=== PATIENT | female | born 1990 | race Caucasian/White ===

== ENCOUNTER → 2017-09-11 | Outpatient (CLI) | payer OTHER ==
[2016-02-13 09:32] VITALS: BP 146/82
[2017-09-11 15:26] LABS: BILIRUBIN,URINE NEGATIVE (NEGATIVE); BLOOD/HEMOGLOBIN,URINE 1+ (NEGATIVE); GLUCOSE, URINE NEGATIVE (NEGATIVE); KETONES,URINE NEGATIVE (NEGATIVE); LEUKOCYTE ESTERASE ,URINE 1+ (NEGATIVE); NITRITES,URINE NEGATIVE (NEGATIVE); PROTEIN,URINE 2+ (NEGATIVE); UROBILINOGEN,URINE 1+ (NORMAL)
[2017-09-11 15:26] LABS: BASOPHILS % (AUTO) 0.2 % (0.2-1.0); BLOOD UREA NITROGEN 7 mg/dL (7-18); CALCIUM 8.7 mg/dL (8.5-10.1); CARBON DIOXIDE 25.5 mmol/L (21-32); CHLORIDE 103 mmol/L (98-107); CREATININE 0.54 mg/dL (0.55-1.02); EOSINOPHILS # (AUTO) 0.1 x10^3/uL (0.0-0.2); EOSINOPHILS % (AUTO) 1.1 % (0.9-2.9); HEMATOCRIT 38.2 % (36.0-47.0); LYMPHOCYTES # (AUTO) 1.9 X10^3/uL (1.3-2.9); LYMPHOCYTES % (AUTO) 20.8 % (21.0-51.0); MEAN CORPUSCULAR HEMOGLOBIN 28.1 pg (27.0-34.0); MEAN CORPUSCULAR HGB CONC 34.1 g/dL (33.0-35.0); MEAN CORPUSCULAR VOLUME 82.2 fL (80.0-100.0); MONOCYTES # (AUTO) 0.3 x10^3/uL (0.3-0.8); MONOCYTES % (AUTO) 3.8 % (0.0-13.0); NEUTROPHILS # (AUTO) 6.6 x10^3/uL (2.2-4.8); NEUTROPHILS % (AUTO) 74.1 % (42.0-75.0); PLATELET COUNT 159 X10^3/uL (150.0-450.0); RED BLOOD COUNT 4.65 X10^6/uL (3.5-5.4); RED CELL DISTRIBUTION WIDTH 15.1 % (11.6-16.5); SODIUM 138 mmol/L (136-145); WHITE BLOOD COUNT 8.9 X10^3/uL (3.6-10.0); eGFR BLACK RACES > 60 (>60); eGFR NON BLACK RACES > 60 (>60)
[2017-09-11 16:07] LABS: AMORPHOUS SEDIMENT,UR TRACE /HPF (NEGATIVE); APPEARANCE,URINE CLEAR (CLEAR); BACTERIA,URINE TRACE /HPF (NEGATIVE); COLOR,URINE YELLOW (YELLOW); MUCUS,URINE MODERATE /HPF (NEGATIVE); RBC,URINE RARE /HPF (NEGATIVE); SQUAMOUS EPITHELIAL CELL,UR MANY /HPF (NEGATIVE)
== END ==
LOC: LAB 14:26
PROVIDERS: ATTEND Specialist
DX: Z01.818 Encounter for other preprocedural examination (principal); Z34.83 Encounter for supervision of other normal pregnancy, third trimester
CPT/HCPCS: 36415; 80048; 80307; 81001; 85025; 86592; 86850; 86900; 86901; G0434

== ENCOUNTER 2017-09-14 06:24 | Inpatient (IN) | payer OTHER ==
[2017-09-14] MEDS ORDERED: LR 1000 ML IV 1,000 ML IV ONE ×2 (06:40→08:10)
[2017-09-14] MEDS ORDERED: PITOCIN ONE (06:41)
[2017-09-14] MEDS ORDERED: D5LR 1L W PITOCIN 10 UNITS/L 10 UNITS/1,000 ML BAG IV ONE (06:41)
[2017-09-14] MEDS ORDERED: D5 1/2 NS 1000 ML 1,000 ML IV ONE (06:42)
[2017-09-14] MEDS ORDERED: D5 1/2 NS 1L W PITOCIN 20 UNITS/L 20 UNITS/1,000 ML BAG IV ONE (06:42)
[2017-09-14] MEDS ORDERED: NAROPIN EPIDURAL 0.2% 97 ML with FENTANYL INJ 250 mcg 150 MCG EPI ONE ×2 (07:00)
--- NOTE | 2017-09-14 07:01 | DR.OB ---
OB Quick Note - Assessment/Plan Assessment/Plan: L&D 09/14/17 at 6:55am S-No complaint. O-Afebrile,VSS MTL=635 with good LTV, +accel, no decel. CTX=occasional,mild CVX=3cm/50%/-1/VTX AROM with clear fluid. IUPC and FSE placed. A-IUP at 39 3/7 weeks for induction P-Begin pitocin induction Anticipate
[2017-09-14] MEDS ORDERED: FENTANYL INJ 100 mcg ONE (07:50)
[2017-09-14] MEDS ORDERED: NAROPIN EPIDURAL 0.2% + FENTANYL 90MCG 60 ML EPI ONE (07:50)
[2017-09-14] MEDS ORDERED: MORPHINE SULFATE INJ 2 MG INJ IVP PRN (08:35)
[2017-09-14] MEDS ORDERED: NUBAIN INJ 200 MG VIAL MULTIDOSE IVP PRN (08:35)
[2017-09-14] MEDS ORDERED: PHENERGAN INJ 25 MG IV PRN ×3 (08:35→12:11)
[2017-09-14] MEDS ORDERED: D5 1/2 NS 1000 ML 1,000 ML IV SCH (08:35)
[2017-09-14] MEDS ORDERED: REGLAN INJ 10 MG VIAL IVP PRN ×2 (08:35→12:11)
[2017-09-14] MEDS ORDERED: PITOCIN IVP ONE (08:35)
[2017-09-14] MEDS ORDERED: D5LR 1L W PITOCIN 10 UNITS/L 10 UNITS/1,000 ML BAG IV PRN (08:35)
[2017-09-14] MEDS ORDERED: MOTRIN TAB 800 MG PO PRN ×2 (11:24→12:11)
[2017-09-14] MEDS ORDERED: D5 1/2 NS 1000 ML 1,000 ML with PITOCIN 20 UNITS IV SCH ×2 (12:00)
[2017-09-14] MEDS ORDERED: AMBIEN PO PRN (12:11)
[2017-09-14] MEDS ORDERED: ADACEL TDaP IM ONE (12:11)
[2017-09-14] MEDS ORDERED: MILK OF MAGNESIA PO PRN (12:11)
[2017-09-14] MEDS ORDERED: DERMOPLAST SPRAY TOP PRN (12:11)
[2017-09-14] MEDS: D5 1/2 NS 1000 ML 1,000 ML with PITOCIN 20 UNITS IV SCH ×4 (14:24→22:28)
--- NOTE | 2017-09-14 16:00 | DR.OB ---
OB Quick Note - Assessment/Plan Assessment/Plan: Delivery Note FRUIT DUMPER 09/14/17 at 11:15am Patient complete and pushing. Head delivered over intact perineum. Nuchal cord x 2 reduced. Nose and mouth bulb suctioned. Body delivered over intact perineum. Cord clamped x 2 and cut. Infant handed to attendant. Cord sent for gases. Placenta delivered spontaneously / intact / 3 vessel cord. No CVX / vaginal / perineal tears noted. Viable male , wt=8'3" and 9/9, stable to NBN. Mother stable to RR. [id number].
[2017-09-14] MEDS: ZANTAC PO SCH (21:00)
[2017-09-15 05:17] LABS: HEMATOCRIT 36.5 % (36.0-47.0); HEMOGLOBIN 12.4 g/dL (12.0-16.0)
[2017-09-15] MEDS: ZANTAC PO SCH (08:12)
[2017-09-15] MEDS ORDERED: PRENATAL PLUS PO SCH (09:00)
[2017-09-15 12:21] VITALS: BP 169/93
[2017-09-15] MEDS: D5 1/2 NS 1000 ML 1,000 ML with PITOCIN 20 UNITS IV SCH ×2 (14:49)
== END 2017-09-15 15:30 | disposition home or self-care (01) | DRG 775 ==
LOC: LD 06:24 → MED/SURG 12:11
PROVIDERS: ADMIT Specialist; ATTEND Specialist
PROC: 10E0XZZ Delivery of Products of Conception, External Approach (ICD-10-PCS; principal; 2017-09-14)
PROC: 10907ZC Drainage of Amniotic Fluid, Therapeutic from Products of Conception, Via Natural or Artificial Opening (ICD-10-PCS; 2017-09-14)
PROC: 3E033VJ Introduction of Other Hormone into Peripheral Vein, Percutaneous Approach (ICD-10-PCS; 2017-09-14)
PROC: 00HU33Z Insertion of Infusion Device into Spinal Canal, Percutaneous Approach (ICD-10-PCS; 2017-09-14)
PROC: 3E0234Z Introduction of Serum, Toxoid and Vaccine into Muscle, Percutaneous Approach (ICD-10-PCS; 2017-09-14)
DX: O80 Encounter for full-term uncomplicated delivery (principal); Z37.0 Single live birth; Z3A.39 39 weeks gestation of pregnancy; Z23 Encounter for immunization
CPT/HCPCS: 09167; 36415; 59409; 80048; 80307; 81001; 85014; 85018; 85025; 86592; 86850; 86900; 86901; A4222; S0197; G0434; J2590; J3010; J7042; J7120

== ENCOUNTER 2017-09-21 21:36 | Emergency (ER) | payer OTHER ==
[2017-09-21 21:51] VITALS: BMI 39.1
--- NOTE | 2017-09-21 21:57 | DR.GENAD ---
HPI - PCP Primary Care Physician: susan - HPI Comment HPI Comment: HISTORY BELOW. - Complaint/Symptoms Chief Complaint Doctors Comments: GLASS BOWL FELL AND BROKE AND PATIENT FELL IN THE GLASS SUSTAINING LACERATION TO THE PALM OF HER RIGHT HAND AND MID LEFT FOREARM. DENIES LOC. TD NOT UTD. Chief Complaint:: pt fell has laceration 1 inch to lt forearm and laceration to rt palm of hand on a glass cassorole dish - Nurses notes reviewed Nurses Notes Review: Yes - Source History Provided: Patient - Mode of Arrival Mode of Arrival: Ambulatory - Timing Onset of Chief Complaint: 09/21/17 Came on: Suddenly - Duration Duration: Constant Duration: Hours - Severity Severity: Moderate PMH - PMH Past Medical History: No Past Surgical History: Yes Surgical History: Tonsillectomy - Family History History of Family Medical Conditions: Yes Family Medical History: Diabetes Mellitus, Hypertension - Social History Do you use any recreational Drugs:: No Lives With: Family Lives Where: Home - infectious screening In the last 2 months have you had wt loss of >10#?: NO Have you had fever, night sweats or hemotysis?: No Have you traveled outside the country in the last 6 months?: No Isolation: Standard ROS - Review of Systems Constitutional: No Symptoms Reported Eyes: No Symptoms Reported ENTM: No Symptoms Reported Respiratoy: No Symptoms Reported Cardiovascular: No Symptoms Reported Gastrointestinal/Abdominal: No Symptoms Reported Genitourinary: No Symptoms Reported Neurological: No Symptoms Reported Musculoskeletal: Forearm (MID POSTERIOR LEFT FOREARM LACERATION 2CM.), Hand ( LACERATION, PALM RIGHT HAND/2CM.) Integumentary: Other (LAC PALM RT HAND AND LT FOREARM.) Hematologic/Lymphatic: No Symptoms Reported Endocrine: No Symptoms Reported All Other Systems: Reviewed and Negative PE - Vital Signs Vitals: Temperature 98.2 F Pulse Rate [Left Brachial] 76 Pulse Rate 74 Respiratory Rate 16 Blood Pressure [Left Arm] 126/74 Blood Pressure [Right Arm] 169/93 Blood Pressure 147/83 O2 Sat by Pulse Oximetry 100 - General Limitations: No Limitations General Appearance: Alert - Head Head Exam: Normal Inspection - Eyes Eye exam: Normal Appearance, PERRL, EOMI. negative: Scleral Icterus, Conjunctival Injection - ENT ENT Exam: Normal Exam, Normal External Ear Exam External Ear Exam: Normal External Inspection TM/Canal Exam: Bilateral Normal Nose Exam: Normal Nose Exam Mouth Exam: Normal Inspection Throat Exam: Normal Inspection - Neck Neck Exam: Trachea Midline - Chest Chest Inspection: Symmetric Chest Wall Rise - Respiratory Respiratory Exam: Normal Lung Sounds Bilat Respiratory Exam: Bilateral Clear to Auscultation - Cardiovascular Cardiovascular Exam: Regular Rate, Normal Rhythm, Normal Heart Sounds - Abdominal Exam Abdominal Exam: Normal Bowel Sounds, Soft. negative: Tenderness - Extremities Extremities Exam: Tenderness (LACERATION LEFT FOREARM AND RIGHT PALM OF HAND.) - Back Back Exam: Paraspinal Tenderness - Neurologic Neurological Exam: Alert, Oriented X3 - Psychiatric Psychiatric Exam: Normal Affect, Normal Mood, Anxious - Skin Skin Exam: Other (LACERATIONS ABOVE.) MDM - Additional Information Additional Information Obtained From: Family - Differential Diagnosis Differential Diagnosis: LACERATION PALM RIGHT HAND, LACERATION LEFT FOREARM. Course - Treatment Treatment: SEE ORDERS. LAC CLOSE IN ED. - Education/Counseling Education/Counseling: Patient, Family, Education Educated On: Treatment, Needs for Follow Up Procedures - Laceration/Wound Repair Right Wound Length (cm): 2 Wound's Depth, Shape: Irregular Wound Explored: contaminated Betadine Prep?: Yes Anesthesia: 1% Lidocaine Wound Debrided: minimal Wound Repaired With: sutures Suture Size/Type: 4:0, Ethilion Number of Sutures: 6 Layer Closure?: Yes Deep Layer Suture Size/Type: 4:0 Sterile Dressing Applied?: Yes Splint Applied?: No Sling Applied?: No Left Forearm Wound Length (cm): 2 Wound's Depth, Shape: Linear Wound Explored: clean Anesthesia: 1% Lidocaine Volume Anesthetic (ccs): 2 Wound Debrided: minimal Wound Repaired With: sutures Suture Size/Type: 4:0, Ethilion Number of Sutures: 9 Layer Closure?: No Sterile Dressing Applied?: Yes Splint Applied?: No Sling Applied?: No - Diagnosis Discharge Problem: Laceration of right palm Qualifiers: Encounter type: initial encounter Qualified Code(s): S61.411A - Laceration without foreign body of right hand, initial encounter Laceration of left forearm Qualifiers: Encounter type: initial encounter Qualified Code(s): S51.812A - Laceration without foreign body of left forearm, initial encounter - Discharge Plan Disposition: HOME, SELF-CARE Condition: Stable Prescriptions: Cephalexin [KEFLEX CAP 500 MG *] 500 mg PO TID #21 cap Ibuprofen [MOTRIN TAB 800 MG *] 800 mg PO Q8H PRN #20 tab PRN Reason: Pain/Inflammation - Follow ups/Referrals Follow ups/Referrals: NFD,None [Primary Care Provider] - 3 days - Instructions Instructions: Laceration Care, Adult, [id number] Additional Instructions: RETURN TO ED IF WORSE. SUTURE OUT IN 10 DAYS
[2017-09-21] MEDS ORDERED: XYLOCAINE 1 % (PLAIN) ONE (22:01)
[2017-09-21] MEDS ORDERED: ADACEL TDaP IM ONE ×2 (22:02→22:16)
[2017-09-21] MEDS ORDERED: KEFLEX CAP 500 MG PO ONE ×2 (22:52→22:55)
[2017-09-21] MEDS ORDERED: MOTRIN TAB 800 MG PO ONE ×2 (22:53→22:56)
[2017-09-21 23:10] VITALS: BP 126/74
== END 2017-09-21 23:10 | disposition home or self-care (01) ==
LOC: ER 21:42
PROC: 0XQ9XZZ Repair Left Upper Arm, External Approach (ICD-10-PCS; principal; 2017-09-21)
PROC: 0XQ8XZZ Repair Right Upper Arm, External Approach (ICD-10-PCS; principal; 2017-09-21)
DX: S61.411A Laceration without foreign body of right hand, initial encounter (principal); S51.812A Laceration without foreign body of left forearm, initial encounter; W01.110A Fall on same level from slipping, tripping and stumbling with subsequent striking against sharp glass, initial encounter; Y92.9 Unspecified place or not applicable
CPT/HCPCS: 12002; 90471; 99282; J2001

== ENCOUNTER 2020-02-22 06:20 | Inpatient (IN) ==
[~2020-02-22 06:20] MED LIST: DIPRIVAN VIAL ONE; EPHEDRINE SULFATE INJ ONE; REGLAN INJ 10 MG VIAL ONE; ZOFRAN INJ 4 MG VIAL ONE
[2020-02-22] MEDS ORDERED: D5 1/2 NS 1000 ML 1,000 ML IV ONE (06:26)
[2020-02-22] MEDS ORDERED: PITOCIN ONE (06:26)
[2020-02-22] MEDS ORDERED: D5LR 1L W PITOCIN 10 UNITS/L 10 UNITS/1,000 ML BAG IV ONE (06:27)
[2020-02-22] MEDS ORDERED: BETADINE SOLN ONE (06:27)
[2020-02-22] MEDS ORDERED: D5 1/2 NS 1L W PITOCIN 20 UNITS/L 20 UNITS/1,000 ML BAG IV ONE (06:28)
[2020-02-22] MEDS: D5 1/2 NS 1000 ML 1,000 ML IV SCH ×2 (06:35→17:27)
[2020-02-22] MEDS ORDERED: MORPHINE SULFATE INJ 2 MG INJ IVP PRN (06:39)
[2020-02-22] MEDS ORDERED: PITOCIN IVP ONE (06:39)
[2020-02-22] MEDS ORDERED: NUBAIN INJ 200 MG VIAL MULTIDOSE IVP PRN (06:39)
[2020-02-22] MEDS ORDERED: REGLAN INJ 10 MG VIAL IVP PRN ×2 (06:39→18:11)
[2020-02-22] MEDS ORDERED: D5LR 1L W PITOCIN 10 UNITS/L 10 UNITS/1,000 ML BAG IV PRN (06:39)
[2020-02-22] MEDS ORDERED: PHENERGAN INJ 25 MG IM PRN ×2 (06:39→18:11)
[2020-02-22] MEDS ORDERED: AMPICILLIN VIAL 2 GRAM 2 G in NS 100 ML IV + SPIKE MINIBAG* 100 ML IV SCH (06:39)
[2020-02-22] MEDS ORDERED: AMPICILLIN VIAL 2 GRAM ONE (06:40)
[2020-02-22] MEDS ORDERED: NS 100 ML IV 100 ML IV ONE ×3 (06:40→14:42)
--- NOTE | 2020-02-22 07:01 | DR.OB ---
OB Quick Note - Assessment/Plan Assessment/Plan: L&D 02/22/20 at 6:55am S-No complaint. O-Afebrile,VSS QYL=707 with good LTV, +accel, no decel. CTX=none CVX=2-3cm/50%/-1/VTX AROM with clear fluid. IUPC and FSE placed. A-IUP at 39 3/7 weeks for induction Multiparity Desiring Permanent Sterilization +GBS P-Begin pitocin induction IV ABX in labor for +GBS Anticipate
[2020-02-22] MEDS ORDERED: AMPICILLIN VIAL 1 GRAM ONE ×2 (11:08→14:42)
[2020-02-22] MEDS: AMPICILLIN VIAL 1 GRAM 1 G in NS 50 ML IV + SPIKE MINIBAG* 50 ML IV SCH ×2 (11:10→14:48)
--- NOTE | 2020-02-22 12:00 | DR.OB ---
OB Quick Note - Assessment/Plan Assessment/Plan: L&D 02/22/20 at 11:55am Pitocin=16mu/min. Ampicillin S-No complaint. O-Afebrile,VSS WDQ=516 with good LTV, +accel, no decel. CTX=q 1 1/2 to 3 min., about 45-55mmHg CVX=4cm/50%/-1 A-IUP at 39 3/7 weeks for induction Multiparity desiring permanent sterilization +GBS P-Cont. pitocin induction/ABX Anticipate
[2020-02-22] MEDS ORDERED: NS IRRIGATION 1000 ML ONE (13:08)
[2020-02-22] MEDS ORDERED: XYLOCAINE-MPF 1% ONE (15:34)
[2020-02-22] MEDS ORDERED: DILAUDID INJ ONE (15:35)
[2020-02-22] MEDS ORDERED: ANCEF 1 GRAM IV PREMIX* 2 G/100 ML BAG IV ONE (15:48)
[2020-02-22] MEDS ORDERED: LR 1000 ML IV 1,000 ML IV ONE (16:06)
--- NOTE | 2020-02-22 16:06 | DR.OB ---
OB Quick Note - Assessment/Plan Assessment/Plan: L&D 02/22/20 at 4:04pm Pitocin=18mu/min. Ampicillin S-No complaint. O-Afebrile,VSS VRX=187 with good LTV, +accel, repetitive late decels and deep variables CTX=q 1 1/2 to 3 min., about 45-55mmHg CVX=5cm/75%/-1 A-IUP at 39 3/7 weeks with distress distant from delivery P-To C/S
[2020-02-22] MEDS: VSL#3 PO SCH (17:26)
[2020-02-22] MEDS ORDERED: BENADRYL INJ 50 MG VIAL IVP PRN ×2 (18:11→18:36)
[2020-02-22] MEDS ORDERED: ZOFRAN INJ 4 MG VIAL IVP PRN ×2 (18:11→18:36)
[2020-02-22] MEDS ORDERED: ADACEL or BOOSTRIX TDaP VACCINE IM ONE (18:36)
[2020-02-22] MEDS ORDERED: MYLICON TAB 80 MG CHEW PO PRN (18:36)
[2020-02-22] MEDS ORDERED: NARCAN INJ IVP PRN (18:36)
[2020-02-22] MEDS ORDERED: PERCOCET TAB 5/325 MG PO PRN (18:36)
[2020-02-22] MEDS ORDERED: D5 1/2 NS 1000 ML 1,000 ML with PITOCIN 20 UNITS IV SCH ×2 (19:00)
[2020-02-22] MEDS: TORADOL 30 MG VIAL IVP PRN (20:07)
[2020-02-23] MEDS: TORADOL 30 MG VIAL IVP PRN (04:30)
[2020-02-23 06:19] LABS: HEMATOCRIT 36.4 % (36.0-47.0); HEMOGLOBIN 12.5 g/dL (12.0-16.0)
[2020-02-23] MEDS ORDERED: PERCOCET TAB 5/325 MG PO PRN (08:03)
[2020-02-23] MEDS: VSL#3 PO SCH (08:21)
[2020-02-23] MEDS: PRENATAL PLUS PO SCH (08:21)
[2020-02-23] MEDS: COLACE CAP 100 MG PO SCH ×2 (09:24→21:30)
[2020-02-23] MEDS: MOTRIN TAB 800 MG PO PRN ×2 (09:24→19:09)
[2020-02-23] MEDS: BACTROBAN TOPICAL OINT TOP SCH ×2 (14:39→22:49)
[2020-02-24] MEDS: BACTROBAN TOPICAL OINT TOP SCH (05:14)
[2020-02-24] MEDS: VSL#3 PO SCH (08:21)
[2020-02-24] MEDS: MOTRIN TAB 800 MG PO PRN (08:21)
[2020-02-24] MEDS: PRENATAL PLUS PO SCH (08:21)
[2020-02-24] MEDS: COLACE CAP 100 MG PO SCH (08:21)
[2020-02-24 11:20] VITALS: BP 143/85
== END 2020-02-24 10:55 | disposition home or self-care (01) | DRG 785 ==
LOC: LD 06:20 → MED/SURG 18:23
PROVIDERS: ADMIT Specialist; ATTEND Specialist
DX: B95.1 Streptococcus, group B, as the cause of diseases classified elsewhere; Z3A.39 39 weeks gestation of pregnancy; Z30.2 Encounter for sterilization; Z37.0 Single live birth; O34.211 Maternal care for low transverse scar from previous cesarean delivery; N85.8 Other specified noninflammatory disorders of uterus; O99.824 Streptococcus B carrier state complicating childbirth; O77.9 Labor and delivery complicated by fetal stress, unspecified
CPT/HCPCS: 36415; 80048; 80307; 81003; 85014; 85018; 85025; 86592; 86850; 86900; 86901; A4216; A4222; J0290; J0690; J1170; J1200; J1885; J2405; J2590; J2704; J2765; J3490; J7050; J7120; S0197; S5010